=== PATIENT | female | born 1955 | race Caucasian/White ===

== ENCOUNTER → 2024-02-09 12:37 | Outpatient (REF) | payer MEDICARE, OTHER, SELFPAY | LOC: WDC 12:37 | PROVIDERS: ATTENDING PHYSICIAN Family Medicine | DX: R92.8 Other abnormal and inconclusive findings on diagnostic imaging of breast (principal) | CPT/HCPCS: 77061; 77065 ==

== ENCOUNTER → 2024-06-01 09:43 | Outpatient (REF) | payer MEDICARE, OTHER, SELFPAY | LOC: HWRAD 09:43 | PROVIDERS: ATTENDING PHYSICIAN Student in an Organized Health Care Education/Training Program; FAMILY PHYSICIAN Family Medicine | DX: K74.69 Other cirrhosis of liver (principal) | CPT/HCPCS: 76700 ==

== ENCOUNTER → 2024-08-18 16:41 | Outpatient (REF) | payer MEDICARE, OTHER, SELFPAY | LOC: WDC 16:41 | PROVIDERS: ATTENDING PHYSICIAN Family Medicine | DX: Z12.31 Encounter for screening mammogram for malignant neoplasm of breast (principal); R92.8 Other abnormal and inconclusive findings on diagnostic imaging of breast | CPT/HCPCS: 77063; 77067 ==

== ENCOUNTER → 2025-01-03 17:32 | Outpatient (REF) | payer MEDICARE, OTHER, SELFPAY | LOC: MRI 3T 17:32 | PROVIDERS: ATTENDING PHYSICIAN Internal Medicine Gastroenterology; FAMILY PHYSICIAN Family Medicine | DX: K74.60 Unspecified cirrhosis of liver (principal) | CPT/HCPCS: 74183; A9581 ==

== ENCOUNTER → 2025-01-10 15:23 | Outpatient (REF) | payer MEDICARE, OTHER, SELFPAY | LOC: RAD 15:23 | PROVIDERS: ATTENDING PHYSICIAN Internal Medicine Gastroenterology; FAMILY PHYSICIAN Family Medicine | DX: R77.2 Abnormality of alphafetoprotein (principal) | CPT/HCPCS: 71260; 74178; Q9967 ==

== ENCOUNTER → 2025-01-12 09:53 | Outpatient (REF) | payer MEDICARE, OTHER, SELFPAY | LOC: HWRAD 09:53 | PROVIDERS: ATTENDING PHYSICIAN Internal Medicine Gastroenterology; FAMILY PHYSICIAN Family Medicine | DX: R77.2 Abnormality of alphafetoprotein (principal) | CPT/HCPCS: 76830 ==

== ENCOUNTER → 2025-01-19 10:08 | Outpatient (REF) | payer MEDICARE, OTHER, SELFPAY | LOC: MRI 10:08 | PROVIDERS: ATTENDING PHYSICIAN Internal Medicine Gastroenterology; FAMILY PHYSICIAN Family Medicine | DX: R77.2 Abnormality of alphafetoprotein (principal) | CPT/HCPCS: 72197; A9575 ==

== ENCOUNTER 2025-02-17 06:30 | Day surgery (SDC) | payer MEDICARE, OTHER, SELFPAY | END 2025-02-17 14:34 | disposition home or self-care (01) | LOC: GI 06:30 | PROVIDERS: ATTENDING PHYSICIAN Internal Medicine Gastroenterology | DX: K74.60 Unspecified cirrhosis of liver (principal); I85.10 Secondary esophageal varices without bleeding; K31.89 Other diseases of stomach and duodenum; K31.7 Polyp of stomach and duodenum | CPT/HCPCS: 43239; 88305 ==